=== PATIENT | female | born 1990 | race Caucasian/White ===

== ENCOUNTER 2017-06-14 16:56 | Observation (INO) | payer OTHER ==
[~2017-06-14] VITALS: Ht 165.1 cm; Wt 103.0 kg
== END 2017-06-14 22:10 | disposition home or self-care (01) ==
LOC: MLD 16:56
PROVIDERS: ADMIT Obstetrics & Gynecology; ATTEND Obstetrics & Gynecology
DX: O26.893 Other specified pregnancy related conditions, third trimester (principal); R10.9 Unspecified abdominal pain; O99.89 Other specified diseases and conditions complicating pregnancy, childbirth and the puerperium; M54.9 Dorsalgia, unspecified; Z3A.36 36 weeks gestation of pregnancy
CPT/HCPCS: 76805; G0378; 81000